=== PATIENT | male | born 1990 | race American Indian/Alaskan Native ===

== ENCOUNTER 2017-03-18 17:11 | Emergency (ER) | payer SELFPAY ==
[2017-03-18 17:42] VITALS: BP 144/74
--- NOTE | 2017-03-19 00:07 | Emergency Department Report ---
HPI - General Chief Complaint: Urogenital-Male Time Seen by Provider: 03/18/17 23:56 - HPI HPI: This is a 26-year-old male presents to ED complaining of burning with urination for about a week now. Patient states his mild penile discharge for the 2 to 3 days. Patient denies any lesions around the penis. Patient denies fever/chills /nausea/vomiting/testicular swelling bleeding or pain ED Past Medical Hx - Past Medical History Previous Medical History?: No - Surgical History Past Surgical History?: Yes Additional Surgical History: stomach surgery - Social History Smoking Status: Never Smoker Substance Use Type: None ED Review of Systems ROS: Stated complaint: STD Other details as noted in HPI Constitutional: denies: chills, fever Eyes: denies: eye pain, eye discharge, vision change ENT: denies: ear pain, throat pain Respiratory: denies: cough, shortness of breath, wheezing Cardiovascular: denies: chest pain, palpitations Endocrine: no symptoms reported Gastrointestinal: denies: abdominal pain, nausea, vomiting, diarrhea Genitourinary: dysuria, discharge. denies: urgency, frequency, hematuria, testicular pain, testicular mass Musculoskeletal: denies: back pain, joint swelling, arthralgia Skin: denies: rash, lesions Neurological: denies: headache, weakness, paresthesias Psychiatric: denies: anxiety, depression Hematological/Lymphatic: denies: easy bleeding, easy bruising Physical Exam - Physical Exam Vital Signs: Vital Signs 03/18/17 17:40 Temperature 98.5 F Pulse Rate 70 Respiratory 18 Rate Blood Pressure 144/74 O2 Sat by Pulse 97 Oximetry Physical Exam: GENERAL: Alert and oriented x3, no apparent distress, Normal Gait, atraumatic. HEAD: Head is normocephalic and a-traumatic. LUNGS: Symetrical with respiration, No wheezing, no rales or crackles, CTAB. HEART: S1, S2 present, regular rate and rhythm without murmur, no rubs, no gallops. Non tender to palpation ABDOMEN: No organomegaly was noted,Positive bowel sounds, soft, and non- distended. . Nontender to palpation on all Quadrants, NO CVA tenderness. SKIN: Warm and dry, No lesions, No ulceration or induration present. ED Course Vital Signs 03/18/17 17:40 Temperature 98.5 F Pulse Rate 70 Respiratory 18 Rate Blood Pressure 144/74 O2 Sat by Pulse 97 Oximetry ED Medical Decision Making - Medical Decision Making 26-year-old male presents with STD exposure. ED course: Patient was very rude upon examination in stating that he needs medication without a urine test. I explained to the patient that he cannot be administered any medication prior to having the urine test. Patient Being belligerent and making comments such as why the "black" doctor did not give a shot masses needed. Patient Stating all I need is a shot. I explained the patient's medications and not administer prior to getting any test results. I explained to the patient and he cannot be given any medication prior to having a urine test done, patient then gave urine sample was sent to the lab, I explained to the patient that if there is need for treatment he will be treated in the ED Urinalysis and gonorrhea and Chlamydia cultures obtained. Urinalysis positive for leukorrhea Patient received 250 mg of Rocephin, azithromycin 1 g, Flagyl 2 g. Discussed with patient possible STD due to exposure. I expressed the patient gonorrhea and Chlamydia cultures would not be back for another 2-3 days and can call back for results. Discussed with patient findings and treatment Discussed prophylaxis treatment patient is to abstain from sex 7-10 days as treatment. Discussed patient partner knowledge and treatment. Discussed the follow-up with the health department for further STD testing. Patient's alert and oriented times 3. Vital signs are normal patient is in no acute discharge. Patient will be discharged home with instructions. Critical care attestation.: If time is entered above; I have spent that time in minutes in the direct care of this critically ill patient, excluding procedure time. ED Disposition Clinical Impression: STD (sexually transmitted disease) Disposition: DC-01 TO HOME OR SELFCARE Is pt being admited?: No Does the pt Need Aspirin: No Condition: Stable Instructions: Chlamydia Infection (ED), Sexually Transmitted Diseases (ED), Safe Sex (ED), Trichomoniasis (ED) Additional Instructions: Make sure to follow up with the primary care physician as discussed. Take all your medications as you've been prescribed. If you have any worsening symptoms or develop new symptoms please return to ED immediately. Make sure you go to the health department for further STD screening. Referrals: KARINA HILARIO MD [Primary Care Provider] - 3-5 Days [facility] [Outside] - 3-5 Days [facility] [Outside] - 3-5 Days [facility] [Outside] - 3-5 Days [facility] [Outside] - 3-5 Days Forms: Work/School Release Form(ED) Time of Disposition: 00:27
[2017-03-19 00:09] LABS: Bilirubin,Urine NEG (Negative); Blood,Urine NEG (Negative); Color,Urine Yellow (Yellow); Mucus,Urine FEW /HPF; Nitrite,Urine NEG (Negative); Protein,Urine <15 mg/dL mg/dL (Negative)
[2017-03-19 00:11] LABS: WBC,Urine > 182.0 /HPF (0.0-6.0)
[2017-03-19] MEDS ORDERED: XYLOCAINE 1% MPF 5 mL INFILTRATI ONE (00:24)
[2017-03-19] MEDS ORDERED: ROCEPHIN IM ONE (00:24)
[2017-03-19] MEDS ORDERED: ZITHROMAX PO ONE (00:24)
[2017-03-19] MEDS ORDERED: FLAGYL PO ONE (00:25)
== END 2017-03-19 01:30 | disposition home or self-care (01) ==
LOC: ED 17:11
DX: A64 Unspecified sexually transmitted disease (principal)
CPT/HCPCS: 81001; 96372; 99283; J0696